=== PATIENT | male | born 1960 | race Caucasian/White ===

== ENCOUNTER → 2023-05-30 13:20 | Outpatient (REF) | payer OTHER, SELFPAY ==
--- NOTE | 2023-05-30 13:27 | CA_ITS ---
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 The calculated ejection fraction is 46% by biplane method. - LV peak GLS -13.2%, diminished. - No obvious valvular pathology seen on this study. Findings Procedure Information Contrast agent, definity, is being given per protocol without apparent complications. Left Ventricle Normal left ventricular cavity size. The left ventricular systolic function is mildly decreased. The calculated ejection fraction is 46% by biplane method. There is mild global hypokinesis. Diastolic function is normal for age. There is mild septal asymmetric hypertrophy. LV peak GLS -13.2%, diminished. Right Ventricle Normal right ventricular cavity size. There is low normal right ventricular systolic function. Atria Both atria are normal in size. Aortic Valve There is a normal trileaflet aortic valve. There is no aortic valve stenosis. There is no aortic valve regurgitation. Mitral Valve The mitral valve appears normal. There is no mitral valve regurgitation. There is no mitral valve stenosis. Pulmonic Valve The pulmonic valve is likely normal. Tricuspid Valve There is trace tricuspid valve regurgitation. There is no evidence of pulmonary hypertension. Great Vessels The aortic annulus, sinuses of valsalva, and asc aorta are normal in size. Venous The inferior vena cava is normal in size and collapses greater than 50% with inspiration. Pericardium/Pleural There is no evidence of pericardial effusion. Prior Study Comparison No prior study available for comparison. Recommendations, Care & Conclusions No obvious valvular pathology seen on this study. Measurements 2D Linear Measurements IVSd: 1.12 0.6-0.9/0.6-1.0 cm LVIDd: 4.97 3.9-5.3/4.2-5.9 cm LVIDd Index: 2.72 2.4-3.2/2.2-3.1 cm/m2 LVIDs: 3.25 2.0-3.6 cm LVPWd: 0.66 0.7-1.1 cm Ao Root: 3.60 2.1-3.5 cm LA Diam: 3.10 2.7-3.8/3.0-4.0 cm LAIDs Index: 1.69 1.5-2.3 cm/m2 LV Mass: 191.61 67-162/88-224 g LV Mass Index: 104.70 43-95/49-115 g/m2 LVOT Diam: 2.30 3.0+(-)1.3 cm 2D Systolic Function EF 4C: 45.30 >55% EF 2C: 47.90 >55% EF BiP: 46.10 >55% Mitral Valve MV Pk E: 0.36 MV PK A: 0.43 MV Decel Time: 351.00 E/A: 0.80 E'Lateral: 5.00 E'Medial: 5.44 E/E' Med: 6.50 E/E' Lat: 7.10 PHT: 103.00 MVA PHT: 2.14 Decel [place]: 1.01 Aortic Valve AoV Pk Jos: 0.90 AoV Pk Grad: 3.00 SEPIDEH: 3.42 LVOT LVOT Pk Jos: 0.75 LVOT Mn Jos: 0.56 LVOT VTI: 0.16 LVOT Pk Grad: 2.00 LVOT Mn Grad: 1.00 LVOT Diam: 2.30 LVOT Area: 4.15 Diastolic Function MV Pk E: 0.36 MV Pk A: 0.43 E/A: 0.80 E'Medial: 5.44 E/E' Med: 6.50 E' Laterial: 5.00 E/E' Lat: 7.10 Right Ventricle TAPSE (mm): 17.10 TVS' Jos: 10.80 Tricuspid Valve TR Pk Jos: 1.94 TR Pk Grad: 15.00 RA Press: 3.00 RVSP: 18.00 Great Vessels Aorta Ao Root-2D: 3.60 2.0-3.7 cm Ao Asc: 3.30 2.1-3.4 cm Pulmonary Veins Pulm Vein S/D 1.40 Pulmonary Valve PV Pk Jos: 0.77 Peak PV Grad: 2.00 Updated in Other Vendor System with Status of Final Harpreet Rodriguez MD electronically signed on 06/01/2023 1:26:56 PM with status of Final
== END ==
LOC: HO.CARD 13:20
PROVIDERS: PCP Internal Medicine; Visit Provider Internal Medicine Cardiovascular Disease
DX: I42.0 Dilated cardiomyopathy (principal); R07.9 Chest pain, unspecified; G45.9 Transient cerebral ischemic attack, unspecified
CPT/HCPCS: 93306; 93356; Q9957

== ENCOUNTER → 2023-05-30 13:27 | Outpatient (BNV) | payer OTHER, SELFPAY | PROVIDERS: PCP Internal Medicine; Visit Provider Internal Medicine | DX: I42.0 Dilated cardiomyopathy (principal) | CPT/HCPCS: 93306 ==